=== PATIENT | male | born 1985 | race Caucasian/White ===

== ENCOUNTER 2023-08-19 21:05 | Inpatient (IN) | payer OTHER ==
[~2023-08-19] VITALS: Ht 185.4 cm; Wt 112.5 kg
[2023-08-19 22:08] LABS: Basophils # (auto) 0 10 ^3/uL (0-0.2); Basophils % (auto) 0.2 % (0.0-2.0); Eosinophils # (auto) 0 10 ^3/uL (0-0.8); Eosinophils % (auto) 0.2 % (0.0-7.0); Hematocrit 45.1 % (41.0-53.0); Hemoglobin 15.8 g/dL (13.5-17.5); Lymphocytes % (auto) 8.7 % (10.0-50.0); Mean Corpuscular Hemoglobin 31.7 pg (28.0-32.0); Mean Corpuscular Hgb Conc. 34.9 g/dL (32.0-36.0); Mean Corpuscular Volume 90.7 fL (80.0-100.0); Monocytes # (auto) 0.7 10 ^3/uL (0-1.3); Monocytes % (auto) 6.1 % (0.0-12.0); Neutrophils % (auto) 84.8 % (37.0-80.0); Red Blood Cells 4.98 10^6/uL (4.5-5.90); Red Cell Distribution Width 12.7 % (11.8-14.3); White Blood Cell 11.8 10^3/uL (4.4-10.8)
[2023-08-19 22:12] LABS: Chloride 94 mmol/L (98-107); Sodium 130 mmol/L (136-145)
[2023-08-19 22:13] LABS: Anion Gap 10 (5-15); Calcium 9.5 mg/dL (8.5-10.1); Carbon Dioxide 26 mmol/L (20-30)
[2023-08-19 22:18] LABS: Blood Alcohol < 3.0 mg/dL (<10); Glucose 129 mg/dL (74-106)
[2023-08-19 22:19] LABS: BUN/Creatinine Ratio 7.7 (10.0-20.0); Blood Urea Nitrogen < 5 mg/dL (9-23)
[2023-08-20] MEDS: SODIUM CHLORIDE 0.9% 1,000 ML IV SCH
[2023-08-20] MEDS ORDERED: ONDANSETRON HCL 4 MG/2 ML VIAL IV PRN
[2023-08-20] MEDS: POTASSIUM CHL 20MEQ/100ML 100 ML IV ONE (03:35)
[2023-08-20] MEDS: ACETAMINOPHEN 325 MG TAB PO PRN (03:42)
[2023-08-20 06:31] LABS: Basophils # (auto) 0 10 ^3/uL (0-0.2); Basophils % (auto) 0.4 % (0.0-2.0); Eosinophils # (auto) 0 10 ^3/uL (0-0.8); Eosinophils % (auto) 0.3 % (0.0-7.0); Hematocrit 44.8 % (41.0-53.0); Hemoglobin 15.8 g/dL (13.5-17.5); Lymphocytes # (auto) 1.3 10 ^3/uL (0.4-5.4); Mean Corpuscular Hemoglobin 32.2 pg (28.0-32.0); Mean Corpuscular Hgb Conc. 35.2 g/dL (32.0-36.0); Mean Corpuscular Volume 91.4 fL (80.0-100.0); Monocytes # (auto) 0.9 10 ^3/uL (0-1.3); Monocytes % (auto) 8.6 % (0.0-12.0); Neutrophils # (auto) 8.5 10 ^3/uL (1.6-8.6); Neutrophils % (auto) 78.7 % (37.0-80.0); Nucleated Red Blood Cells % 0.2 %; Red Cell Distribution Width 12.7 % (11.8-14.3); White Blood Cell 10.8 10^3/uL (4.4-10.8)
[2023-08-20 06:51] LABS: Alanine Aminotransferase 219 U/L (7-40); Albumin 4.2 g/dL (3.2-4.8); Alkaline Phosphatase 165 U/L (46-116); Anion Gap 9 (5-15); Aspartate Aminotransferase 261 U/L (13-40); Bilirubin, Total 2.2 mg/dL (0.2-1.0); Calcium 9.5 mg/dL (8.5-10.1); Carbon Dioxide 26 mmol/L (20-30); Chloride 95 mmol/L (98-107); Glucose 103 mg/dL (74-106); Potassium 3.6 mmol/L (3.5-5.1); Sodium 130 mmol/L (136-145); Total Protein 7.4 g/dL (5.7-8.2)
[2023-08-20 06:52] LABS: BUN/Creatinine Ratio 7.4 (10.0-20.0); Blood Urea Nitrogen < 5 mg/dL (9-23)
[2023-08-20 10:30] VITALS: PULSE 122; RESP 20; O2SAT 98
[2023-08-20 16:09] VITALS: BP 133/97; PULSE 92; RESP 18; TEMP 98.1; O2SAT 98
[2023-08-20 17:00] VITALS: BP 133/97; PULSE 92; RESP 17; TEMP 98.1; O2SAT 98
[2023-08-20] MEDS: POTASSIUM CHL 20 Meq TABLET PO ONE (17:40)
[2023-08-20 21:00] VITALS: BP 134/96; PULSE 107; RESP 21; TEMP 98.4; O2SAT 95
[2023-08-20] MEDS ORDERED: LORazepam 2MG/ML-1ML VIAL IV PRN ×2 (22:45)
[2023-08-21] VITALS (7 sets, daily range): BP systolic 133–159; BP diastolic 81–97; PULSE 85–103; RESP 16–20; TEMP 97.9–98.9; O2SAT 96–100
[2023-08-21 06:32] LABS: Alanine Aminotransferase 276 U/L (7-40); Albumin 3.9 g/dL (3.2-4.8); Alkaline Phosphatase 153 U/L (46-116); Anion Gap 7 (5-15); Aspartate Aminotransferase 335 U/L (13-40); Bilirubin, Total 1.8 mg/dL (0.2-1.0); Calcium 9.1 mg/dL (8.5-10.1); Carbon Dioxide 30 mmol/L (20-30); Chloride 100 mmol/L (98-107); Glucose 81 mg/dL (74-106); Magnesium 2.2 mg/dL (1.6-2.6); Sodium 137 mmol/L (136-145); Total Protein 6.8 g/dL (5.7-8.2)
[2023-08-21 06:33] LABS: BUN/Creatinine Ratio 7.6 (10.0-20.0); Blood Urea Nitrogen < 5 mg/dL (9-23)
[2023-08-21 09:08] LABS: Hepatitis B Surface Antigen Negative (Negative)
[2023-08-21 10:22] LABS: Hepatitis C Antibody Reactive (Negative)
[2023-08-21] MEDS: POTASSIUM CHL 20 Meq TABLET PO ONE (11:20)
[2023-08-21] MEDS: SERTRALINE HCL 50 MG TAB PO ONE (11:56)
[2023-08-21] MEDS: traZODone HCL 50 MG TAB PO SCH (22:00)
[2023-08-22 01:00] VITALS: BP 149/94; PULSE 82; RESP 20; TEMP 98.3; O2SAT 96
[2023-08-22 01:48] LABS: COVID19 ANTIGEN SOFIA FIA NEGATIVE (NEGATIVE)
[2023-08-22 05:00] VITALS: BP 145/95; PULSE 82; RESP 17; TEMP 98.2; O2SAT 97
[2023-08-22 07:50] LABS: Alanine Aminotransferase 307 U/L (7-40); Albumin 3.9 g/dL (3.2-4.8); Alkaline Phosphatase 147 U/L (46-116); Anion Gap 7 (5-15); Aspartate Aminotransferase 303 U/L (13-40); Calcium 9.2 mg/dL (8.5-10.1); Carbon Dioxide 27 mmol/L (20-30); Chloride 103 mmol/L (98-107); Glucose 86 mg/dL (74-106); Magnesium 2.3 mg/dL (1.6-2.6); Potassium 3.6 mmol/L (3.5-5.1); Sodium 137 mmol/L (136-145)
[2023-08-22 07:51] LABS: Bilirubin, Total 0.9 mg/dL (0.2-1.0); Total Protein 6.7 g/dL (5.7-8.2)
[2023-08-22 07:53] LABS: BUN/Creatinine Ratio 8.5 (10.0-20.0); Blood Urea Nitrogen < 5 mg/dL (9-23)
[2023-08-22 08:00] VITALS: BP 134/84; PULSE 84; RESP 16; TEMP 98.4; O2SAT 98
[2023-08-22 12:00] VITALS: BP 145/99; PULSE 60; RESP 16; TEMP 97.9; O2SAT 99
[2023-08-22] MEDS: SERTRALINE HCL 50 MG TAB PO SCH (12:50)
[2023-08-22 16:00] VITALS: BP 130/90; PULSE 82; RESP 16; TEMP 98; O2SAT 96
[2023-08-22 22:00] VITALS: BP 142/94; PULSE 74; RESP 20; TEMP 98; O2SAT 94
[2023-08-23 00:57] VITALS: BP 105/66; PULSE 73; RESP 16; TEMP 97.8; O2SAT 96
[2023-08-23 05:00] VITALS: BP 140/95; PULSE 81; RESP 18; TEMP 98.2; O2SAT 98
[2023-08-23 06:19] LABS: Basophils # (auto) 0 10 ^3/uL (0-0.2); Basophils % (auto) 0.6 % (0.0-2.0); Eosinophils # (auto) 0.2 10 ^3/uL (0-0.8); Eosinophils % (auto) 2.6 % (0.0-7.0); Hemoglobin 15.1 g/dL (13.5-17.5); Lymphocytes # (auto) 1.4 10 ^3/uL (0.4-5.4); Lymphocytes % (auto) 23.7 % (10.0-50.0); Mean Corpuscular Hemoglobin 32.3 pg (28.0-32.0); Mean Corpuscular Hgb Conc. 34.4 g/dL (32.0-36.0); Mean Corpuscular Volume 93.9 fL (80.0-100.0); Monocytes # (auto) 0.8 10 ^3/uL (0-1.3); Monocytes % (auto) 12.9 % (0.0-12.0); Neutrophils # (auto) 3.7 10 ^3/uL (1.6-8.6); Neutrophils % (auto) 60.2 % (37.0-80.0); Red Blood Cells 4.69 10^6/uL (4.5-5.90); Red Cell Distribution Width 13.2 % (11.8-14.3); White Blood Cell 6.1 10^3/uL (4.4-10.8)
[2023-08-23 06:42] LABS: Alanine Aminotransferase 351 U/L (7-40); Alkaline Phosphatase 149 U/L (46-116); Anion Gap 7 (5-15); Aspartate Aminotransferase 297 U/L (13-40); BUN/Creatinine Ratio 8.6 (10.0-20.0); Blood Urea Nitrogen 6 mg/dL (9-23); Calcium 9.5 mg/dL (8.5-10.1); Carbon Dioxide 28 mmol/L (20-30); Chloride 104 mmol/L (98-107); Glucose 93 mg/dL (74-106); Potassium 4.3 mmol/L (3.5-5.1); Sodium 139 mmol/L (136-145)
[2023-08-23 06:43] LABS: Albumin 4.1 g/dL (3.2-4.8); Bilirubin, Total 0.9 mg/dL (0.2-1.0); Total Protein 6.9 g/dL (5.7-8.2)
[2023-08-23] MEDS: amLODIPine BESYLATE 5 MG TAB PO SCH (08:44)
[2023-08-23 09:00] VITALS: BP 147/101; PULSE 87; RESP 18; TEMP 98.6; O2SAT 99
[2023-08-23 09:06] LABS: Anti-Nuclear Antibody Direct Negative (Negative)
[2023-08-23] MEDS ORDERED: TRAZ-227 PO (10:10)
[2023-08-23] MEDS ORDERED: SERT50TA PO (10:10)
[2023-08-23] MEDS ORDERED: AMLO1TAB23 PO (10:10)
== END 2023-08-23 12:19 | disposition home or self-care (01) | DRG 641 ==
LOC: ER 21:05 → EDBD 21:05 → OVERFLOW 08-20 00:20 → CENTRAL 08-20 15:49
PROVIDERS: ADMIT Nurse Practitioner; ATTEND Internal Medicine
DX: E86.0 Dehydration (principal); G90.8 Other disorders of autonomic nervous system; E87.1 Hypo-osmolality and hyponatremia; E87.6 Hypokalemia; S00.03XA Contusion of scalp, initial encounter; B19.20 Unspecified viral hepatitis C without hepatic coma; K76.0 Fatty (change of) liver, not elsewhere classified; F31.9 Bipolar disorder, unspecified; F17.200 Nicotine dependence, unspecified, uncomplicated; R16.2 Hepatomegaly with splenomegaly, not elsewhere classified; E66.9 Obesity, unspecified; I10 Essential (primary) hypertension; R32 Unspecified urinary incontinence; Z20.822 Contact with and (suspected) exposure to COVID-19; X58.XXXA Exposure to other specified factors, initial encounter; Y93.89 Activity, other specified; Y92.89 Other specified places as the place of occurrence of the external cause; Y99.8 Other external cause status; Z82.49 Family history of ischemic heart disease and other diseases of the circulatory system; Z81.8 Family history of other mental and behavioral disorders; Z68.32 Body mass index [BMI] 32.0-32.9, adult; Z87.828 Personal history of other (healed) physical injury and trauma
CPT/HCPCS: 36415; 70450; 80048; 80053; 80307; 80320; 82550; 82728; 83690; 83735; 85025; 86038; 86803; 87340; 87426; 93005; 95819; 99291; G0378; J3480

== ENCOUNTER 2023-08-27 11:39 | Emergency (ER) | payer OTHER ==
[~2023-08-27] VITALS: Ht 182.9 cm; Wt 110.2 kg
[~2023-08-27 11:39] MED LIST: AMLO1TAB23 PO; SERT50TA PO; TRAZ-227 PO
[2023-08-27 13:49] VITALS: BP 128/78; PULSE 90; RESP 16; TEMP 97.4; O2SAT 97
== END 2023-08-27 13:53 | disposition home or self-care (01) ==
LOC: ER 11:39
DX: Z48.02 Encounter for removal of sutures (principal); Z79.899 Other long term (current) drug therapy

== ENCOUNTER 2023-10-09 09:42 | Inpatient (IN) | payer OTHER ==
[~2023-10-09] VITALS: Ht 182.9 cm; Wt 108.0 kg
[2023-10-09 11:05] LABS: Basophils # (auto) 0.1 10 ^3/uL (0-0.2); Basophils % (auto) 0.6 % (0.0-2.0); Eosinophils # (auto) 0 10 ^3/uL (0-0.8); Eosinophils % (auto) 0.1 % (0.0-7.0); Hematocrit 45.4 % (41.0-53.0); Hemoglobin 15.6 g/dL (13.5-17.5); Lymphocytes # (auto) 1.1 10 ^3/uL (0.4-5.4); Lymphocytes % (auto) 11.6 % (10.0-50.0); Mean Corpuscular Hemoglobin 32.4 pg (28.0-32.0); Mean Corpuscular Hgb Conc. 34.5 g/dL (32.0-36.0); Mean Corpuscular Volume 93.9 fL (80.0-100.0); Monocytes % (auto) 11.3 % (0.0-12.0); Neutrophils # (auto) 6.9 10 ^3/uL (1.6-8.6); Neutrophils % (auto) 76.4 % (37.0-80.0); Red Blood Cells 4.83 10^6/uL (4.5-5.90); Red Cell Distribution Width 13.6 % (11.8-14.3); White Blood Cell 9.1 10^3/uL (4.4-10.8)
[2023-10-09 11:15] LABS: Chloride 104 mmol/L (98-107); Potassium 2.8 mmol/L (3.5-5.1); Sodium 135 mmol/L (136-145)
[2023-10-09 11:16] LABS: Anion Gap 10 (5-15); Calcium 9.4 mg/dL (8.5-10.1); Carbon Dioxide 21 mmol/L (20-30)
[2023-10-09 11:21] LABS: BUN/Creatinine Ratio 6.3 (10.0-20.0); Blood Urea Nitrogen < 5 mg/dL (9-23); Glucose 170 mg/dL (74-106)
[2023-10-09] MEDS: cefTRIAXone 1GM/50ML D5W 50 ML IV ONE (12:15)
[2023-10-09] MEDS: CLINDAMYCIN 300MG IV 50 ML IV ONE (12:15)
[2023-10-09] MEDS: SODIUM CHLORIDE 0.9% 1,000 ML IV SCH (13:30)
[2023-10-09] MEDS: POTASSIUM EFFERVESENT TAB 25 MEQ PO ONE (13:30)
[2023-10-09] MEDS ORDERED: VANCOMYCIN PER PHARMACY 0 MG IV SCH (13:30)
[2023-10-09] MEDS ORDERED: HYDROcodone-ACET 5/325MG TAB PO PRN (13:30)
[2023-10-09] MEDS: PANTOPRAZOLE 40 MG/10 ML VIAL INJ IV ONE (13:30)
[2023-10-09] MEDS ORDERED: ACETAMINOPHEN 325 MG TAB PO PRN (13:30)
[2023-10-09] MEDS: VANCOMYCIN 1GM/200ML 200 ML IV ONE (14:15)
[2023-10-09 14:24] VITALS: BP 135/65; PULSE 70; RESP 16; TEMP 98; O2SAT 95
[2023-10-09 14:41] LABS: Magnesium 1.8 mg/dL (1.6-2.6)
[2023-10-09 14:59] LABS: INR 1.09 (0.9-1.15); Prothrombin Time 11.5 sec (9.3-11.8)
[2023-10-09] MEDS: CLINDAMYCIN 600MG IV 50 ML IV SCH (16:00)
[2023-10-09 17:00] VITALS: BP 135/88; PULSE 85; RESP 18; TEMP 98.1; O2SAT 97
[2023-10-09 21:00] VITALS: BP 119/83; PULSE 98; RESP 19; TEMP 99; O2SAT 96
[2023-10-09] MEDS: traZODone HCL 50 MG TAB PO SCH (21:44)
[2023-10-09] MEDS: VANCOMYCIN 1GM/200ML 200 ML IV SCH (21:45)
[2023-10-09] MEDS: ASCORBIC ACID 500 MG TAB PO SCH (21:45)
[2023-10-10 01:01] VITALS: BP 115/69; PULSE 83; RESP 18; TEMP 97.8; O2SAT 100
[2023-10-10 04:49] VITALS: BP 100/68; PULSE 70; RESP 18; TEMP 97.5; O2SAT 98
[2023-10-10 07:06] LABS: Basophils # (auto) 0 10 ^3/uL (0-0.2); Basophils % (auto) 0.6 % (0.0-2.0); Eosinophils # (auto) 0.1 10 ^3/uL (0-0.8); Eosinophils % (auto) 1.9 % (0.0-7.0); Hematocrit 38.9 % (41.0-53.0); Hemoglobin 13.6 g/dL (13.5-17.5); Lymphocytes # (auto) 1.2 10 ^3/uL (0.4-5.4); Lymphocytes % (auto) 22.4 % (10.0-50.0); Mean Corpuscular Hemoglobin 32.7 pg (28.0-32.0); Mean Corpuscular Hgb Conc. 34.9 g/dL (32.0-36.0); Mean Corpuscular Volume 93.6 fL (80.0-100.0); Monocytes # (auto) 0.8 10 ^3/uL (0-1.3); Monocytes % (auto) 14.6 % (0.0-12.0); Neutrophils # (auto) 3.2 10 ^3/uL (1.6-8.6); Neutrophils % (auto) 60.5 % (37.0-80.0); Nucleated Red Blood Cells % 0.1 %; Red Blood Cells 4.15 10^6/uL (4.5-5.90); Red Cell Distribution Width 13.8 % (11.8-14.3); White Blood Cell 5.3 10^3/uL (4.4-10.8)
[2023-10-10 07:18] LABS: Alanine Aminotransferase 27 U/L (7-40); Albumin 3.6 g/dL (3.2-4.8); Alkaline Phosphatase 107 U/L (46-116); Anion Gap 6 (5-15); Aspartate Aminotransferase 13 U/L (13-40); Bilirubin, Total 0.5 mg/dL (0.2-1.0); Calcium 8.8 mg/dL (8.5-10.1); Carbon Dioxide 27 mmol/L (20-30); Chloride 107 mmol/L (98-107); Glucose 95 mg/dL (74-106); Potassium 3.5 mmol/L (3.5-5.1); Sodium 140 mmol/L (136-145)
[2023-10-10 07:19] LABS: BUN/Creatinine Ratio 7.5 (10.0-20.0); Blood Urea Nitrogen < 5 mg/dL (9-23); Total Protein 5.9 g/dL (5.7-8.2)
[2023-10-10] MEDS: PANTOPRAZOLE 40 MG/10 ML VIAL INJ IV SCH (07:45)
[2023-10-10] MEDS: ZINC SULFATE 220mg CAP or TAB PO SCH (07:45)
[2023-10-10] MEDS: MULTIPLE VITAMIN TAB PO SCH (07:45)
[2023-10-10] MEDS: SERTRALINE HCL 50 MG TAB PO SCH (07:45)
[2023-10-10] MEDS: amLODIPine BESYLATE 5 MG TAB PO SCH (08:49)
[2023-10-10 09:00] VITALS: BP 115/73; PULSE 78; RESP 18; TEMP 97.6; O2SAT 97
[2023-10-10 13:00] VITALS: BP 122/82; PULSE 75; RESP 18; TEMP 97.8; O2SAT 100
[2023-10-10 17:00] VITALS: BP 141/84; PULSE 85; RESP 20; TEMP 98.5; O2SAT 98
[2023-10-10 21:00] VITALS: BP 133/81; PULSE 85; RESP 20; TEMP 98.5; O2SAT 97
[2023-10-11] VITALS (8 sets, daily range): BP systolic 87–123; BP diastolic 52–68; PULSE 66–79; RESP 18–20; TEMP 97.6–98.3; O2SAT 95–98
[2023-10-11 05:28] LABS: Basophils # (auto) 0.1 10 ^3/uL (0-0.2); Basophils % (auto) 1.2 % (0.0-2.0); Eosinophils # (auto) 0.1 10 ^3/uL (0-0.8); Eosinophils % (auto) 2.6 % (0.0-7.0); Hematocrit 39.8 % (41.0-53.0); Hemoglobin 13.9 g/dL (13.5-17.5); Lymphocytes # (auto) 1.3 10 ^3/uL (0.4-5.4); Lymphocytes % (auto) 26.1 % (10.0-50.0); Mean Corpuscular Hemoglobin 32.7 pg (28.0-32.0); Mean Corpuscular Hgb Conc. 34.9 g/dL (32.0-36.0); Mean Corpuscular Volume 93.8 fL (80.0-100.0); Monocytes # (auto) 0.6 10 ^3/uL (0-1.3); Monocytes % (auto) 11.8 % (0.0-12.0); Neutrophils # (auto) 2.9 10 ^3/uL (1.6-8.6); Neutrophils % (auto) 58.3 % (37.0-80.0); Nucleated Red Blood Cells % 0.1 %; Red Blood Cells 4.25 10^6/uL (4.5-5.90); Red Cell Distribution Width 13.8 % (11.8-14.3)
[2023-10-11 05:37] LABS: Anion Gap 4 (5-15); Carbon Dioxide 28 mmol/L (20-30); Chloride 109 mmol/L (98-107); Sodium 141 mmol/L (136-145)
[2023-10-11 05:38] LABS: Calcium 8.9 mg/dL (8.5-10.1)
[2023-10-11 05:43] LABS: Glucose 93 mg/dL (74-106)
[2023-10-11 05:44] LABS: BUN/Creatinine Ratio 8.2 (10.0-20.0); Blood Urea Nitrogen < 5 mg/dL (9-23)
[2023-10-12] VITALS (8 sets, daily range): BP systolic 102–128; BP diastolic 55–86; PULSE 66–91; RESP 14–20; TEMP 97.7–98.3; O2SAT 96–100
[2023-10-12 05:58] LABS: Basophils # (auto) 0 10 ^3/uL (0-0.2); Basophils % (auto) 0.7 % (0.0-2.0); Eosinophils # (auto) 0.1 10 ^3/uL (0-0.8); Eosinophils % (auto) 2.4 % (0.0-7.0); Hematocrit 40.9 % (41.0-53.0); Lymphocytes # (auto) 1.6 10 ^3/uL (0.4-5.4); Mean Corpuscular Hemoglobin 32.2 pg (28.0-32.0); Mean Corpuscular Hgb Conc. 34.1 g/dL (32.0-36.0); Mean Corpuscular Volume 94.3 fL (80.0-100.0); Monocytes # (auto) 0.5 10 ^3/uL (0-1.3); Monocytes % (auto) 10.8 % (0.0-12.0); Neutrophils # (auto) 2.6 10 ^3/uL (1.6-8.6); Neutrophils % (auto) 53.1 % (37.0-80.0); Nucleated Red Blood Cells % 0.1 %; Red Blood Cells 4.33 10^6/uL (4.5-5.90); Red Cell Distribution Width 13.8 % (11.8-14.3); White Blood Cell 4.9 10^3/uL (4.4-10.8)
[2023-10-12 06:08] LABS: Anion Gap 5 (5-15); Carbon Dioxide 26 mmol/L (20-30); Chloride 110 mmol/L (98-107); Sodium 141 mmol/L (136-145)
[2023-10-12 06:13] LABS: Glucose 89 mg/dL (74-106)
[2023-10-12 06:14] LABS: Blood Urea Nitrogen 8 mg/dL (9-23)
[2023-10-13 01:00] VITALS: BP 94/63; PULSE 98; RESP 18; TEMP 98.7; O2SAT 97
[2023-10-13 05:00] VITALS: BP 110/69; PULSE 68; RESP 20; TEMP 98.4; O2SAT 98
[2023-10-13 08:05] VITALS: PULSE 68; RESP 17
[2023-10-13 08:40] VITALS: BP 115/75; PULSE 68; RESP 17; TEMP 97.9; O2SAT 98
[2023-10-13 09:38] LABS: Basophils # (auto) 0 10 ^3/uL (0-0.2); Basophils % (auto) 0.6 % (0.0-2.0); Eosinophils # (auto) 0.1 10 ^3/uL (0-0.8); Eosinophils % (auto) 0.9 % (0.0-7.0); Hematocrit 47.3 % (41.0-53.0); Hemoglobin 16.3 g/dL (13.5-17.5); Lymphocytes # (auto) 1.4 10 ^3/uL (0.4-5.4); Lymphocytes % (auto) 22.7 % (10.0-50.0); Mean Corpuscular Hemoglobin 32.5 pg (28.0-32.0); Mean Corpuscular Hgb Conc. 34.4 g/dL (32.0-36.0); Mean Corpuscular Volume 94.6 fL (80.0-100.0); Monocytes # (auto) 0.4 10 ^3/uL (0-1.3); Monocytes % (auto) 6.6 % (0.0-12.0); Neutrophils # (auto) 4.2 10 ^3/uL (1.6-8.6); Neutrophils % (auto) 69.2 % (37.0-80.0); Nucleated Red Blood Cells % 0.2 %; Red Cell Distribution Width 13.9 % (11.8-14.3); White Blood Cell 6.1 10^3/uL (4.4-10.8)
[2023-10-13 09:50] LABS: Chloride 107 mmol/L (98-107); Potassium 4.7 mmol/L (3.5-5.1); Sodium 138 mmol/L (136-145)
[2023-10-13 09:52] LABS: Anion Gap 4 (5-15); Calcium 10.1 mg/dL (8.5-10.1); Carbon Dioxide 27 mmol/L (20-30)
[2023-10-13 09:57] LABS: BUN/Creatinine Ratio 11.8 (10.0-20.0); Blood Urea Nitrogen 8 mg/dL (9-23); Glucose 96 mg/dL (74-106)
[2023-10-13] MEDS ORDERED: AUG875T PO (11:27)
[2023-10-13 12:21] VITALS: BP 115/75
[2023-10-13 12:35] VITALS: BP 132/91; PULSE 91; RESP 17; TEMP 98.2; O2SAT 96
== END 2023-10-13 13:45 | disposition home or self-care (01) | DRG 603 ==
LOC: ER 09:44 → OVERFLOW 13:30 → EAST 13:50
PROVIDERS: ADMIT Nurse Practitioner Family; ATTEND Internal Medicine Geriatric Medicine
DX: L02.214 Cutaneous abscess of groin (principal); E66.01 Morbid (severe) obesity due to excess calories; E87.6 Hypokalemia; F31.9 Bipolar disorder, unspecified; R73.9 Hyperglycemia, unspecified; Z68.32 Body mass index [BMI] 32.0-32.9, adult; Z82.49 Family history of ischemic heart disease and other diseases of the circulatory system; Z81.8 Family history of other mental and behavioral disorders; Z83.42 Family history of familial hypercholesterolemia
CPT/HCPCS: 36415; 80048; 80053; 80061; 80202; 83036; 83735; 84443; 85025; 85610; 87205; 96365; 96368; 96375; C9113; G0378; J3490